=== PATIENT | male | born 1935 | race Caucasian/White ===

== ENCOUNTER 2025-04-20 14:59 | Emergency (ER) | payer OTHER ==
[~2025-04-20] VITALS: Ht 185.4 cm; Wt 60.0 kg
--- NOTE | 2025-04-20 15:23 | ED.PDOC ---
History of Present Illness HPI Comments 89 y/ M, with no prior medical history presents to the ED for CC of generalized weakness. EMS reports, patient is coming from home where he c/o of generalized weakness with associated failure to thrive symptoms [id number]. EMS relays, patient has been unable to move to chair and has had a decrease in appetite. No other symptoms or modifying factors present at this time. Chief Complaint: General Weakness Time Seen by MD: 15:15 Primary Care Provider: UNKNOWN Reviewed Notes: Nurses Notes, Certified Surgical Technologist Notes, Medications, Allergies Allergies: Coded Allergies: NO KNOWN ALLERGIES (Unverified , 04/20/25) Information Source: Patient, Emergency Med Personnel Mode of Arrival: EMS Severity: Moderate Timing: Weeks Duration: Since onset Prehospital treatment: None Past Medical History PAST MEDICAL HISTORY: Denies Surgical History: Denies all surgeries Family History Family History: Unknown Social History Smoker: Non-Smoker Alcohol: Denies ETOH Use Drugs: Denies Drug Use Lives In: Home Constitutional: reports: weakness; denies: chills, diaphoresis, fatigue, fever, malaise, sweats, others EENTM: denies: blurred vision, double vision, ear bleeding, ear discharge, ear drainage, ear pain, ear ringing, eye pain, eye redness, hearing loss, mouth pain, mouth swelling, nasal discharge, nose bleeding, nose congestion, nose pain, photophobia, tearing, throat pain, throat swelling, voice changes, others Respiratory: denies: cough, hemoptysis, orthopnea, SOB at rest, shortness of breath, SOB with excertion, stridor, wheezing, others Cardiovascular: denies: chest pain, dizzy spells, diaphoresis, Dyspnea on exertion, edema, irregular heart beat, left arm pain, lightheadedness, palpitat ions, PND, syncope, others Gastrointestinal: reports: poor appetite; denies: abdomen distended, abdominal pain, blood streaked bowels, constipated, diarrhea, dysphagia, difficulty swallowing, hematemesis, melena, nausea, poor fluid intake, rectal bleeding, rectal pain, vomiting, others Genitourinary: denies: burning, dysuria, flank pain, frequency, hematuria, incontinence, penile discharge, penile sore, pain, testicle pain, testicle swelling, urgency, others Neurological: denies: dizziness, fainting, headache, left sided numbness, left sided weakness, numbness, paresthesia, pre-existing deficit, right sided numbness, right sided weakness, seizure, speech problems, tingling, tremors, weakness, others Musculoskeletal: denies: back pain, gout, joint pain, joint swelling, muscle p ain, muscle stiffness, neck pain, others Integumetry: denies: bruises, change in color, change in hair/nails, dryness, laceration, lesions, lumps, rash, wounds, others Allergic/Immunocompromised: denies: Difficulty Healing, Frequent Infections, Hives, Itching, others Hematologic/Lymphatic: denies: anemia, blood clots, easy bleeding, easy bruising, swollen glands, others Endocrine: denies: excessive hunger, excessive sweating, excessive thirst, excessive urination, flushing, intolerance to cold, intolerance to heat, unexplained weight gain, unexplained weight loss, others Psychiatric: denies: anxiety, bipolar disorder, depression, hopeless, panic disorder, schizophrenia, sleepless, suicidal, others All Other Systems: Reviewed and Negative Physical Exam General Appearance: No Apparent Distress, Normal HEENT: Normal ENT Inspection, Pharynx Normal Neck: Full Range of Motion, Non-Tender, Normal, Normal Inspection Respiratory: Chest Non-Tender, Lungs Clear, No Accessory Muscle Use, No Respiratory Distress, Normal Breath Sounds Cardiovascular: No Edema, No Murmur, No Gallop, Normal Peripheral Pulses, Regular Rate/Rhythm Breast Exam: Deferred Gastrointestinal: No Organomegaly, Non Tender, No Pulsatile Mass, Normal Bowel Sounds, Soft Genitalia: Deferred Pelvic: Deferred Rectal: Deferred Extremities: No calf tenderness, Normal capillary refill, Normal inspection, Normal range of motion, Non-tender, No pedal edema Musculoskeletal : Apperance: Normal Neurologic: Alert, educational institution president II-XII nml as Tested, No Motor Deficits, Normal Affect, Normal Mood, No Sensory Deficits Cerebellar Function: Normal Reflexes: Normal Skin: Dry, Normal Color, Warm Lymphatic: No Adenopathy Was a procedure done? Was a procedure done?: No Differential Dx Considerations may include: dehydration, electrolyte imbalance, UTI X-Ray, Labs, Meds, VS Vital Signs Date Time Temp Pulse Resp B/P (MAP) Pulse Ox O2 Delivery O2 Flow Rate FiO2 04/20/25 16:00 94 04/20/25 15:46 98.0 94 16 107/65 (79) 97 98.0 04/20/25 15:46 96 16 97 Room Air* 0 21 04/20/25 15:09 98.2 101 14 134/57 (82) 96 98.2 04/20/25 15:08 98 Lab Test 04/20/25 16:23 04/20/25 15:47 04/20/25 15:29 Range/Units Troponin I High Sensitivity 429 *H 442 *H </=54 ng/L Urine Color Yellow Yellow Urine Clarity Turbid H Clear Urine pH 5.0 5.0-9.0 Urine Specific [place] 1.019 1.001-1.035 Urine Protein 1+ H Negative Urine Ketones Negative Negative Urine Blood Trace H Negative /uL Urine Nitrite Negative Negative Urine Bilirubin Negative Negative Urine Urobilinogen 3 H Negative mg/dL Urine Leukocyte Esterase Negative Negative /uL Urine RBC 4 0 - 3 /hpf Urine Microscopic WBC 5 H 0-3 /HPF Urine Squamous Epithelial Cells Few <5 /hpf Urine Bacteria Few H None Seen /hpf Urine Mucus Few None Seen Urine Glucose Normal Normal mg/dL White Blood Count 27.7 H 4.4-10.8 10^3/uL Red Blood Count 4.80 4.5-5.90 10^6/uL Hemoglobin 14.6 13.5-17.5 g/dL Hematocrit 44.6 41.0-53.0 % Mean Corpuscular Volume 93.0 80.0-100.0 fL Mean Corpuscular Hemoglobin 30.4 28.0-32.0 pg Mean Corpuscular Hemoglobin Concent 32.7 32.0-36.0 g/dL Red Cell Distribution Width 18.2 H 11.8-14.3 % Platelet Count 82 L 140-450 10^3/uL Mean Platelet Volume 9.5 6.9-10.8 fL Neutrophils (%) (Auto) 37.0-80.0 % Lymphocytes (%) (Auto) 10.0-50.0 % Monocytes (%) (Auto) 0.0-12.0 % Basophils (%) (Auto) 0.0-2.0 % Neutrophils # (Auto) 1.6-8.6 10 ^3/uL Lymphocytes # (Auto) 0.4-5.4 10 ^3/uL Monocytes # (Auto) 0-1.3 10 ^3/uL Differential Total Cells Counted 100.0 100 Neutrophils % (Manual) 93 H 37.0-80.0 Band Neutrophils % (Manual) 3 Lymphocytes % (Manual) 2 L 10.0-50.0 Monocytes % (Manual) 2 0-12 Eosinophils % (Manual) 0 0-7 Basophils % (Manual) 0 0.0-2.0 Metamyelocytes % (manual) 0 Myelocytes % (Manual) 0 Promyelocytes % (Manual) 0 Blast Cells % (Manual) 0 Reactive Lymphocytes 0 Platelet Estimate Decreased Anisocytosis (manual) Slight Sodium Level 140 136-145 mmol/L Potassium Level 4.7 3.5-5.1 mmol/L Chloride Level 105 98-107 mmol/L Carbon Dioxide Level 20 20-31 mmol/L Anion Gap 15 5-15 Blood Urea Nitrogen 67 H 9-23 mg/dL Creatinine 1.51 H 0.700-1.30 mg/dL Glomerular Filtration Rate Calc 44 >90 mL/min BUN/Creatinine Ratio 44.4 H 10.0-20.0 Serum Glucose 146 H 74-106 mg/dL Lactic Acid Level Pending Calcium Level 8.8 8.7-10.4 mg/dL Time of 1ST Reevaluation: 15:45 Reevaluation 1ST: Unchanged Patient Education/Counseling: Diagnosis, Treatment Family Education/Counseling: No Family Present Sepsis Sepsis Reasesment Focused Exam Orders: Laboratory Tests 04/20/25 15:29: Departure 1 Departure Time of Disposition: 17:34 (Patient is DNR comfort care only however after thorough discussion with family we will cover patient with antibiotics for presumed sepsis. We will admit patient for further workup and expert consultation.) Impression: Primary Impression: Acute metabolic encephalopathy Additional Impressions: Pneumonia Qualified Codes: J18.9 - Pneumonia, unspecified organism Need for comfort care Disposition: ADMITTED INPATIENT Admit to: Med Surg Condition: Guarded Critical Care Note Critical Care Time?: Yes Critical care comment: Altered mental status Authorized and Performed by: Kristen Parker MD Total critical care time: Approximately 44 minutes Due to a high probability of clinically significant, life threatening deterio ration, the patient required my highest level of preparedness to intervene emergently and I personally spent this critical care time directly and personally managing the patient. This critical care time included obtaining a history; examining the patient; pulse oximetry; ordering and review of studies; arranging urgent treatment with development of a management plan; evaluation of patient's response to treatment; frequent reassessment; and, discussions with other providers. This critical care time was performed to assess and manage the high probability of imminent, life-threatening deterioration that could result in multi-organ failure. It was exclusive of separately billable procedures and treating other patients and teaching time. Please see my other sections and the rest of the note for further information on patient assessment and treatment. Stability Stability form required: No Heart Score Heart Score: Heart Score Response (Comments) Value History N/A 0 EKG N/A 0 Age N/A 0 Risk Factors N/A 0 Troponin N/A 0 Total 0 I personally scribed for KRISTEN PARKER MD ([email or web address]) on 04/20/25 at 15:23. Electronically submitted by Deloris Miller ([email or web address]). KRISTEN PARKER MD Apr 20, 2025 15:23
[2025-04-20 15:42] LABS: Hematocrit 44.6 % (41.0-53.0); Hemoglobin 14.6 g/dL (13.5-17.5); Mean Corpuscular Hemoglobin 30.4 pg (28.0-32.0); Mean Corpuscular Hgb Conc. 32.7 g/dL (32.0-36.0); Platelet Count (auto) 82 10^3/uL (140-450); Red Cell Distribution Width 18.2 % (11.8-14.3); White Blood Cell 27.7 10^3/uL (4.4-10.8)
--- NOTE | 2025-04-20 15:44 | ECG ---
[facility] Test Date: 2025-04-20 Test Time: 15:08:12 Pat Name: YESI CHRIS Department: ED Room: Gender: M Jaw Skinner: PAULA : 1935 Requested By: KRISTEN DAO Order Number: [id number] Reading MD: Ashvin Mcfadden Measurements Intervals [place] Rate: 98 P: 79 WI: 152 QRS: 175 QRSD: 126 T: 53 QT: 395 QTc: 505 Interpretive Statements Sinus tachycardia Atrial premature complexes Right bundle branch block Abnormal lateral Q waves Anteroseptal infarct, old Electronically Signed On 04-21-2025 21:11:00 PDT by Ashvin Mcfadden Please click the below link to view image of tracing.
[2025-04-20 15:46] VITALS: PULSE 96; RESP 16; O2SAT 97
[2025-04-20 15:51] LABS: Basophils % (manual) 0 (0.0-2.0); Blast Cells 0; Eosinophils % (manual) 0 (0-7); Metamyelocytes % 0; Myelocytes % 0; Promyelocytes % 0; Reactive Lymphocytes 0
[2025-04-20 15:56] LABS: Chloride 105 mmol/L (98-107); Potassium 4.7 mmol/L (3.5-5.1); Sodium 140 mmol/L (136-145)
[2025-04-20 15:57] LABS: Anion Gap 15 (5-15); Calcium 8.8 mg/dL (8.7-10.4)
[2025-04-20 16:02] LABS: BUN/Creatinine Ratio 44.4 (10.0-20.0); Blood Urea Nitrogen 67 mg/dL (9-23); Carbon Dioxide 20 mmol/L (20-31); Glucose 146 mg/dL (74-106)
[2025-04-20 16:09] LABS: Band Neutrophils % (manual) 3; Lymphocytes % (manual) 2 (10.0-50.0); Monocytes % (manual) 2 (0-12); Platelet Estimate Decreased
[2025-04-20 16:10] LABS: Anisocytosis Slight
[2025-04-20 16:12] LABS: Urine Bacteria FEW /hpf (None Seen); Urine Blood TRACE /uL (Negative); Urine Clarity Turbid (Clear); Urine Color Yellow (Yellow); Urine Mucus FEW (None Seen); Urine Protein, UAD 1+ (Negative); Urine Specific Gravity 1.019 (1.001-1.035); Urine Squamous Epithelial Cell FEW /hpf (<5); Urine Urobilinogen 3 mg/dL (Negative); Urine WBC 5 /HPF (0-3)
--- NOTE | 2025-04-20 16:19 | DVH ---
CHEST RADIOGRAPH Indication: weakness Technique: Single frontal view of the chest was obtained COMPARISON: None FINDINGS: Lines and Tubes: None Lungs: Diffuse severe infiltrate right lung Left lung free of infiltrate Pleura: No effusion. No pneumothorax. Cardiomediastinal contours: Moderate cardiomegaly Bones: Unremarkable IMPRESSION: 1. Diffuse severe infiltrate right lung
--- NOTE | 2025-04-20 16:42 | DVH ---
EXAM: CT HEAD WITHOUT CONTRAST INDICATION: weakness TECHNIQUE: CT of the head without intravenous contrast. Radiation Dose : 1. Head: CT Dose: CTDI volume is 65 mGy. Dose-length product is 1275 mGy*cm The dose indicators for CT are the volume Computed Tomography (CT) Dose Index (CTDIvol) and the Dose Length Product (DLP), and are measured in units of mGy and mGy-cm, respectively. These indicators are not patient dose, but values generated from the CT scanner acquisition factors. The report includes radiation exposure data for exposures received during this examination. COMPARISON: None FINDINGS: There is no evidence of acute intracranial hemorrhage, extra-axial collection, mass effect, midline s hift, herniation or hydrocephalus. The ventricles, sulci and cisterns are age appropriate. The castellanos-white differentiation is intact. Patchy periventricular and subcortical white matter hypoattenuation is nonspecific but may be related to small vessel ischemic disease. The visualized paranasal sinuses and mastoid air cells are clear. The surrounding soft tissues and osseous structures are unremarkable. IMPRESSION: 1. No acute intracranial abnormality. Radiation optimization: All CT scans at this facility use at least one of these dose optimization angella hniques: automated exposure control mA and/or kV adjustment per patient size (includes targeted exam s where dose is matched to clinical indication) or iterative reconstruction.
[2025-04-20 17:35] LABS: Lactic Acid w/Reflex 4.9 mmol/L (0.4-2.0)
[2025-04-20] MEDS ORDERED: AZITHROMYCIN 250 MG TAB PO ONE (17:45)
[2025-04-20] MEDS: SODIUM CHLORIDE 0.9% 1,000 ML IV ONE (17:45)
[2025-04-20] MEDS: VANCOMYCIN 1GM/200ML PM 200 ML IV ONE (18:27)
[2025-04-20] MEDS: DOXYCYCLINE 100 MG TAB/CAP PO ONE (18:31)
[2025-04-20 19:30] VITALS: PULSE 85; RESP 19; O2SAT 97
[2025-04-20] MEDS: CEFEPIME 2GM/50ML NS 50 ML IV ONE (21:02)
[2025-04-20] MEDS: SOD CHL 0.45% 1,000 ML IV ONE (21:03)
--- NOTE | 2025-04-20 21:25 | DVH ---
Procedure: CT CHEST WITHOUT CONTRAST Study Date and Requested Time: 04/20 08:19 PM History: abnormal CXR Comparison: None Dose: CTDI: 6.49 mGy DLP: 238.29 mGycm Technique: Multiplanar images obtained through the chest without contrast Findings: The thyroid gland is unremarkable. Mild cardiomegaly. No evidence of aortic aneurysm. Pulmonary trunk is normal in size. Moderate to he pancho atherosclerotic calcification of the aorta. Mediastinal lymphadenopathy which may be reactive. Small 2 moderate right with small left-sided pleural effusions and associated atelectasis. Mixed grou nd-glass and solid opacities of the right upper, middle and lower lobes. Left lower lobe atelectasis. Calcified granuloma of the left upper lobe. No pneumothorax. Hvgy-dw-yhsrvakg upper lobe predominant emphysematous changes. Calcified granulomas within the liver and spleen. Ocbb-[id number] visualized body wall edema. No destructive osseous lesions are noted. Impression: Mixed ground-glass and solid opacities of the right upper, middle and lower lobe which most likely re presents pneumonia in the right clinical setting. There is small to moderate right with small left-sided pleural effusions and associated atelectasis. Adif-wb-[id number] upper lobe predominant emphysematous changes.
[2025-04-21] VITALS (7 sets, daily range): BP systolic 139; BP diastolic 41–83; PULSE 84–91; RESP 16–26; TEMP 97.1; O2SAT 93–100
[2025-04-21] MEDS: diphenhdrAMINE HCL 25 MG CAP PO ONE (02:15)
[2025-04-21] MEDS: ALBUTEROL SULF 2.5 MG/0.5ML(0.5%) NEB SOLN NEB SCH (05:45)
[2025-04-21] MEDS: IPRATROPIUM BROM 0.5 MG/2.5ML INH SOL NEB SCH (05:45)
--- NOTE | 2025-04-21 08:29 | DVH ---
CLINICAL INDICATION: pain TECHNIQUE: 2 radiographic views of the right elbow were obtained. Comparison: None FINDINGS/IMPRESSION: There is no evidence of acute fracture or dislocation. The visualized joint space is well maintained. The alignment is anatomical. There is no radiopaque foreign body.
[2025-04-21] MEDS ORDERED: MORPHINE SULFATE INJ 2 MG/ml SYRG IV PRN (10:15)
[2025-04-21] MEDS ORDERED: LEVO500T91 PO (11:46)
[2025-04-21] MEDS: levoFLOXacin 500MG 100 ML IV ONE (12:41)
[2025-04-21] MEDS: MORPHINE SULFATE 4 MG/ML SYR/VIAL IV PRN (16:22)
--- NOTE | 2025-04-21 22:20 | DVHDS2 ---
Physician Discharge Progress N Final Diagnosis: PNA, elevated troponin Secondary Diagnosis: CAD CHF COPD Operations or Procedures: Operations or Procedures none Other Interventions Other Interventions lab results, EKG, CXR, CT, elbow XR Consultations: Consultations addiction social worker, hospice Commentary: Commentary 89 y.o. male with COPD, CHF was brought to the ED c/o increasing SOB, AMS, weakness, loss of appetite for the past two weeks. His lab results showed elevated troponin x3 without progression, elevated LA. CXR and CT of the chest showed PNA. Patient c/o elbow pain and XR was done - negative for Fx or dislocation. Patient was given IV Abx, pain medications, IVF. Patient was going to be admitted but his family caregiver requested comfort measures only and hospice. Hospice accepted the patient and transferred him back home. Prescription was sent to his pharmacy and instructions were given to the hospice traffic representative to continue Levaquin 500 mg PO daily. Hospice confirmed that they will provide supplemental oxygen ( patient os on home O2 ). Condition on Discharge: Stable Disposition: Hospice - Home SNF Discharge Will this Physician continue t: No Discharge Instructions: Diet: Regular Activity: No Restrictions, As Tolerated Follow Up/Referral: F/U with PMD as scheduled Medications: Continue home medications Levaquin 500 mg PO daily for 7 days Follow Up Care: Discharge Statement: "Patient was advised to return to the ER or call 911 if any headaches, dizziness, shortness of breath, chest pain, abdominal pain, bleeding, fevers, or worsening of medical condition. Patient was counseled about treatment plan, medications, possible side effects, patientverbalized understanding. All questions were answered to the best of my ability. This discharge took greater then 30 minutes in planning, reviewing documentation, counseling the patient, and discussing with other team members." VANNESSA MARSHALL MD Apr 21, 2025 22:20
== END 2025-04-21 17:43 | disposition home or self-care (01) ==
LOC: EDBD 14:59 → ER 15:12
DX: G93.41 Metabolic encephalopathy (principal); Z51.5 Encounter for palliative care; J44.0 Chronic obstructive pulmonary disease with (acute) lower respiratory infection; I50.9 Heart failure, unspecified
CPT/HCPCS: 36415; 70450; 71045; 71250; 73070; 80048; 81001; 83605; 84484; 85007; 85027; 87040; 87077; 87186; 93005; 94640; 96361; 96365; 96367; 96375; 99291; J0692; J1956; J2270; J3370; J7030